=== PATIENT | male | born 1945 | race Caucasian/White ===

== ENCOUNTER 2016-10-18 20:44 | Observation (INO) | payer MEDICARE ==
[2016-10-18] MEDS ORDERED: Diltiazem IV* 5 MG/ML 5 ML VIAL (for loading dose/IV Push) (25 MG) IV SLOW PU ONE (21:23)
[2016-10-18 21:36] LABS: Hematocrit 44 % (42-52); Mean Corpuscular HGB Conc 34 g/dl (31-36); Mean Corpuscular Hemoglobin 29 pg (27-31); Mean Corpuscular Volume 84 fL (80-94); Mean Platelet Volume 9 um3 (7.4-10.4); Red Blood Count 5.24 10^6/ul (4.0-5.4); Red Cell Distribution Width 14 % (10.5-15); White Blood Count 8.1 10^3/ul (3.5-10.8)
[2016-10-18 21:47] LABS: Albumin 4.5 g/dL (3.2-5.2); BUN/Creatinine Ratio 11.6 (8-20); Calcium 9.8 mg/dL (8.6-10.3); EGFR African American 50.7 (>60); EGFR Non-African American 39.4 (>60); Globulin 2.6 g/dL (2-4); Magnesium 2.2 mg/dL (1.9-2.7); Potassium 3.7 mmol/L (3.5-5.0); Total Bilirubin 0.4 mg/dL (0.2-1.0); Total Protein 7.1 g/dL (6.4-8.9)
[2016-10-18] MEDS: Diltiazem DRIP* 100 MG/100 ML ADDV.BAG IVPB ONE ×2 (22:07→22:24)
[2016-10-18] MEDS ORDERED: Diltiazem IV VIAL* 125 MG in D5W 100 ML BAG* 100 ML IV ONE (22:21)
[2016-10-18 22:24] LABS: TSH (Thyroid Stimulating Horm) 7.18 mcIU/mL (0.34-5.60)
[2016-10-18] MEDS ORDERED: Ondansetron INJ* 2 MG/ML VIAL IV PRN (22:32)
[2016-10-18] MEDS ORDERED: Acetaminophen TAB* 325 MG PO PRN (22:32)
[2016-10-18] MEDS ORDERED: clonazePAM TAB(*) 0.5 MG PO PRN (22:36)
[2016-10-18] MEDS ORDERED: Potassium Chlor TAB* 20 MEQ TAB.ER PO ONE (22:46)
[2016-10-18 23:20] LABS: T4 7.04 mcg/mL (6.09-12.23)
--- NOTE | 2016-10-18 23:22 | ED ---
Kei Schreiber Rebecca, scribed for Francisco Javier Ley on 10/18/16 at 2105 . Palpitations / Dysrhythmia - HPI Summary HPI Summary: Pt is a 71 y/o M who presents to ED c/o palpitations characterized as irregular. Pt reports 2 episodes of sx, once 2 or 3 days ago while laying in bed and again tonight, started at 1999. Sx aggravated and alleviated by nothing. Denies any CP or SOB. No prior similar episodes. In February, the pt donated a kidney. SHx former smoker - quit 40 years ago. NO PMHx A Fib. - History of Current Complaint Chief Complaint: EDDysrhythmPalp Time Seen by Provider: 10/18/16 20:59 Hx Obtained From: Patient Onset/Duration: Lasting Hours - Started at, Still Present Character: Irregular Aggravating: Nothing Alleviating: Nothing Associated Signs & Symptoms: Negative - Allergy/Home Medications Allergies/Adverse Reactions: Allergies Allergy/AdvReac Type Severity Reaction Status Date / Time Iohexol Allergy See Comment Verified 10/18/16 20:47 NSAIDs Allergy See Comment Verified 10/18/16 20:48 PMH/Surg Hx/FS Hx/Imm Hx Endocrine/Hematology History: Denies: Hx Diabetes, Hx Anemia Cardiovascular History: Denies: Hx Hypertension, Hx Pacemaker/ICD GI History: Denies: Hx Jaundice History: Denies: Hx Renal Disease Sensory History: Reports: Hx Contacts or Glasses - GLASSES Denies: Hx Hearing Aid Opthamlomology History: Reports: Hx Contacts or Glasses - GLASSES Psychiatric History: Denies: Hx Panic Disorder - Surgical History Surgery Procedure, Year, and Place: 1978 RIGHT INGUINAL HERNIA REPAIR;. APRIL 2015 LEFT INGUINAL HERNIA REPAIR;. 1995 VASECTOMY, OFFICE. 2004 TURP, [facility] [place]. NEPRHECTOMY 02/28/16 Hx Anesthesia Reactions: Yes Infectious Disease History: Denies: Traveled Outside the [place] in Last 30 Days - Family History Known Family History: Positive: Other - No FHx clotting disorders - Social History Alcohol Use: Occasionally Alcohol Amount: 1 GLASS OF WINE OR BEER WITH A MEAL Substance Use Type: Reports: None Substance Use Comment - Amount & Last Used: OCCASIONALLY, LAST TIME A FEW MONTH AGO Smoking Status (MU): Former Smoker Amount Used/How Often: 1 PPD Review of Systems Positive: Palpitations - Irregular. Negative: Chest Pain Negative: Shortness Of Breath All Other Systems Reviewed And Are Negative: Yes Physical Exam - Summary Physical Exam Summary: Appearance: Well appearing, no pain distress Skin: warm, dry, reflects adequate perfusion Head/face: normal Eyes: EOMI, NAIMA ENT: normal Neck: supple, nontender Respiratory: CTA, breath sounds present Cardiovascular: irregularly regular rhythm and tachycardic, pulses symmetrical Abdomen: nontender, soft Bowel: present Musculoskeletal: normal, strength/ROM intact Neuro: normal, sensory motor intact, A&Ox3 Triage Information Reviewed: Yes Vital Signs On Initial Exam: Initial Vitals Temp Pulse Resp BP Pulse Ox 97.6 F 75 14 150/124 96 10/18/16 20:49 10/18/16 20:49 10/18/16 20:49 10/18/16 20:49 10/18/16 20:49 Vital Signs Reviewed: Yes Diagnostics - Vital Signs Vital Signs Temp Pulse Resp BP Pulse Ox 10/18/16 20:49 97.6 F 75 14 150/124 96 - Laboratory Lab Results: Lab Results 10/18/16 10/18/16 10/18/16 Range/Units 21:20 21:20 21:20 WBC 8.1 (3.5-10.8) 10^3/ul RBC 5.24 (4.0-5.4) 10^6/ul Hgb 15.0 (14.0-18.0) g/dl Hct 44 (42-52) % MCV 84 (80-94) fL MCH 29 (27-31) pg MCHC 34 (31-36) g/dl RDW 14 (10.5-15) % Plt Count 210 (150-450) 10^3/ul MPV 9 (7.4-10.4) um3 Neut % (Auto) 56.3 (38-83) % Lymph % (Auto) 31.0 (25-47) % Anderson % (Auto) 9.7 H (1-9) % Eos % (Auto) 2.3 (0-6) % Baso % (Auto) 0.7 (0-2) % Absolute Neuts (auto) 4.6 (1.5-7.7) 10^3/ul Absolute Lymphs (auto) 2.5 (1.0-4.8) 10^3/ul Absolute Monos (auto) 0.8 (0-0.8) 10^3/ul Absolute Eos (auto) 0.2 (0-0.6) 10^3/ul Absolute Basos (auto) 0.1 (0-0.2) 10^3/ul Absolute Nucleated RBC 0 10^3/ul Nucleated RBC % 0 INR (Anticoag Therapy) 0.86 L (0.89-1.11) APTT 32.3 (26.0-36.3) seconds D-Dimer, Quantitative < 200 (Less Than 230) ng/mL Sodium 139 (133-145) mmol/L Potassium 3.7 (3.5-5.0) mmol/L Chloride 106 (101-111) mmol/L Carbon Dioxide 26 (22-32) mmol/L Anion Gap 7 (2-11) mmol/L BUN 20 (6-24) mg/dL Creatinine 1.72 H (0.67-1.17) mg/dL Est GFR ( Amer) 50.7 (>60) Est GFR (Non-Af Amer) 39.4 (>60) BUN/Creatinine Ratio 11.6 (8-20) Glucose 146 H (70-100) mg/dL Calcium 9.8 (8.6-10.3) mg/dL Magnesium 2.2 (1.9-2.7) mg/dL Total Bilirubin 0.40 (0.2-1.0) mg/dL AST 24 (13-39) U/L ALT 25 (7-52) U/L Alkaline Phosphatase 36 (34-104) U/L Troponin I 0.00 (<0.04) ng/mL B-Natriuretic Peptide ( - 100) pg/mL Total Protein 7.1 (6.4-8.9) g/dL Albumin 4.5 (3.2-5.2) g/dL Globulin 2.6 (2-4) g/dL Albumin/Globulin Ratio 1.7 (1-3) TSH 7.18 H (0.34-5.60) mcIU/mL Free T4 Pending Thyroxine (T4) 7.04 (6.09-12.23) mcg/mL Free T3 Pending Total T3 Pending 10/18/16 Range/Units 21:20 WBC (3.5-10.8) 10^3/ul RBC (4.0-5.4) 10^6/ul Hgb (14.0-18.0) g/dl Hct (42-52) % MCV (80-94) fL MCH (27-31) pg MCHC (31-36) g/dl RDW (10.5-15) % Plt Count (150-450) 10^3/ul MPV (7.4-10.4) um3 Neut % (Auto) (38-83) % Lymph % (Auto) (25-47) % Anderson % (Auto) (1-9) % Eos % (Auto) (0-6) % Baso % (Auto) (0-2) % Absolute Neuts (auto) (1.5-7.7) 10^3/ul Absolute Lymphs (auto) (1.0-4.8) 10^3/ul Absolute Monos (auto) (0-0.8) 10^3/ul Absolute Eos (auto) (0-0.6) 10^3/ul Absolute Basos (auto) (0-0.2) 10^3/ul Absolute Nucleated RBC 10^3/ul Nucleated RBC % INR (Anticoag Therapy) (0.89-1.11) APTT (26.0-36.3) seconds D-Dimer, Quantitative (Less Than 230) ng/mL Sodium (133-145) mmol/L Potassium (3.5-5.0) mmol/L Chloride (101-111) mmol/L Carbon Dioxide (22-32) mmol/L Anion Gap (2-11) mmol/L BUN (6-24) mg/dL Creatinine (0.67-1.17) mg/dL Est GFR ( Amer) (>60) Est GFR (Non-Af Amer) (>60) BUN/Creatinine Ratio (8-20) Glucose (70-100) mg/dL Calcium (8.6-10.3) mg/dL Magnesium (1.9-2.7) mg/dL Total Bilirubin (0.2-1.0) mg/dL AST (13-39) U/L ALT (7-52) U/L Alkaline Phosphatase (34-104) U/L Troponin I (<0.04) ng/mL B-Natriuretic Peptide 59 ( - 100) pg/mL Total Protein (6.4-8.9) g/dL Albumin (3.2-5.2) g/dL Globulin (2-4) g/dL Albumin/Globulin Ratio (1-3) TSH (0.34-5.60) mcIU/mL Free T4 Thyroxine (T4) (6.09-12.23) mcg/mL Free T3 Total T3 Result Diagrams: 10/18/16 21:20 10/18/16 21:20 Lab Statement: Any lab studies that have been ordered have been reviewed, and results considered in the medical decision making process. - Radiology CXR Xray Interpretation: No Acute Changes Radiology Interpretation Completed By: ED Physician - EKG 2051 Cardiac Rate: Tachycardia - 141 bpm EKG Rhythm: Atrial Fibrillation - A Fib with rapid ventricular rate EKG Interpretation: A Fib with rapid ventricular rate Course/Dx - Course Assessment/Plan: Pt is a 71 y/o M who presents to ED c/o palpitations characterized as irregular. Pt reports 2 episodes of sx, once 2 or 3 days ago while laying in bed and again tonight, started at 1999. Sx aggravated and alleviated by nothing. Denies any CP or SOB. No prior similar episodes. In February, the pt donated a kidney. SHx former smoker - quit 40 years ago. NO PMHx A Fib. EKG reveals A Fib with rapid ventricular rate. CXR is negative, as reviewed by ED physician. Troponin of 0.00. Discussed care of pt with Dr. Staples, hospitalist, who accepts pt for admission. He will be admitted with Dx of A Fib with RVR. He understands and agrees. Elevated BP noted and advised to f/u with PCP. - Diagnoses Provider Diagnoses: Atrial fibrillation with RVR - Physician Notifications Discussed Care Of Patient With: Ramos Staples Time Discussed With Above Provider: 22:00 Instructed by Provider To: Other - Accepts pt for admission. - Critical Care Time Critical Care Time: 30-74 min - pt given iv cardiazem Discharge - Discharge Plan Condition: Stable Disposition: ADMITTED TO [facility] documentation as recorded by the Kei joe Rebecca accurately reflects the service I personally performed and the decisions made by , Francisco Javier Ley.
[2016-10-18 23:28] LABS: Free T3 3.6 pg/mL (2.5-3.9); Free T4 0.65 ng/dL (0.61-1.12)
[2016-10-18 23:32] LABS: Total T3 1.16 ng/mL (0.87-1.78)
[2016-10-18] MEDS: Diltiazem DRIP* 100 MG/100 ML ADDV.BAG IVPB SCH (23:41)
[2016-10-19] MEDS: Apixaban* 5 MG TAB PO SCH ×2 (00:09→08:29)
[2016-10-19 04:19] LABS: Hematocrit 43 % (42-52); Mean Corpuscular HGB Conc 35 g/dl (31-36); Mean Corpuscular Hemoglobin 29 pg (27-31); Mean Corpuscular Volume 83 fL (80-94); Mean Platelet Volume 9 um3 (7.4-10.4); Red Blood Count 5.22 10^6/ul (4.0-5.4); Red Cell Distribution Width 14 % (10.5-15); White Blood Count 8.4 10^3/ul (3.5-10.8)
[2016-10-19 04:34] LABS: BUN/Creatinine Ratio 11.3 (8-20); Calcium 9.4 mg/dL (8.6-10.3); EGFR African American 52.1 (>60); EGFR Non-African American 40.5 (>60)
[2016-10-19] MEDS: Diltiazem DRIP* 100 MG/100 ML ADDV.BAG IVPB SCH (05:04)
--- NOTE | 2016-10-19 05:11 | HP ---
CC: Dr. Reid; Dr. Macias; Dr. Vogt * HISTORY AND PHYSICAL: DATE OF ADMISSION: 10/18/16 PRIMARY CARE PROVIDER: Dr. Reid. ATTENDING PHYSICIAN WHILE IN THE HOSPITAL: Ramos Staples MD * (report dictated by Ritchie Wright NP). CONSULTING CARDIOLOGISTS: 1. Dr. Macias. 2. Dr. Vogt. CHIEF COMPLAINT: 1. Palpitations. 2. Irregular heart beat. HISTORY OF PRESENT ILLNESS: Mr. Pro is a 71-year-old male patient with a history of BPH and occasional insomnia. He comes into the ER today stating that on , he noticed that his heart rate was elevated. It was irregular. He could feel palpitations in his chest. He thinks that they went away. He was okay on Wednesday and Wednesday and then about 2 hours prior to coming into the ER, he had an episode again of AFib and irregular heart beat. His heart rate was in the 110s to 120s normally. His resting heart rate was around 60. He could feel his heart beat in his ears. It was very sporadic. He was concerned because it was happening again and he came into the hospital. He does have a recent travel. He was driving to [place]. He denies any calf or leg pain. He says he has not had any chest pain or shortness of breath. He recently in February had a nephrectomy to donate to his brother. He does not take any medications. The only things he takes is Klonopin occasionally for insomnia and he says he did have some alcohol this weekend when he was traveling. He does drink coffee pretty routinely. He came in, he was relatively found to be in AFib with RVR. He was given diltiazem bolus, the drip was then started. Because of the AFib with RVR, we were asked to evaluate for admission. PAST MEDICAL HISTORY: Significant for: 1. BPH. 2. Insomnia. PAST SURGICAL HISTORY: 1. He has had a TURP. 2. Nephrectomy. 3. Hernia repair x2. MEDICATIONS: Include Klonopin 0.5 mg as needed at bedtime. ALLERGIES: His allergies to medications include NSAIDs and IV CONTRAST. FAMILY HISTORY: Mother had CHF. She in her 90s. Father had history of IN. SOCIAL HISTORY: He does not smoke. He occasionally drinks alcohol. He does drink coffee on a daily basis. Surrogate decision maker is his . REVIEW OF SYSTEMS: There is no documented fever. He denied having any significant weight change. There was no double vision, no ear discharge, no rhinorrhea, no sore throat. No thyroid enlargement. Denies any chest pain. There is no orthopnea, no nocturnal dyspnea. There is no abdominal pain. No nausea, no vomiting, no dysuria, no frequency, no seizure, no loss of consciousness, no pruritus, and no skin ulcerations. Review of 14 systems was completed, all others negative. PHYSICAL EXAMINATION GENERAL: At this time, Mr. Pro is a 71-year-old male patient. He appears to be well nourished, well developed. He does not appear to be in any acute distress. VITAL SIGNS: Blood pressure 113/80, pulse 99, respirations 18, O2 sat 94%, temperature 97.6. HEENT: Head is atraumatic and normocephalic. Eyes: EOMs are intact. Sclerae are anicteric and not pale. Throat: Oral mucosa appears to be moist. No oropharyngeal erythema. NECK: Supple. LUNGS: Clear to auscultation bilaterally. No wheezes, rales, or rhonchi. HEART: Sounds S1, S2. Irregularly irregular rate. No murmurs, rubs, or gallops. ABDOMEN: Soft. It was flat, nontender. Bowel sounds present. EXTREMITIES: Pulses were 2+ throughout. He is able to move all 4 extremities with 5/5 strength. NEUROLOGIC: He is awake, he is alert, he is oriented x3. Tongue is midline. Leg Breaker were equal. No gross focal deficits. SKIN: Intact. DIAGNOSTIC STUDIES/LAB DATA: The labs reveal a WBC of 8.1, RBC of 5.24, hemoglobin of 15.0, hematocrit of 44, platelet count of 210. INR of 0.86, PTT of 32.3. D- dimer less than 200. Sodium 139, potassium 0.7, chloride of 106, bicarb 26, BUN 20, creatinine 1.79, glucose 146, calcium 9.8. Total mag 2.2. Total bili 0.4, AST 24, ALT 24, alk phos 36. Troponin 0. BNP 59. TSH was 7.18. He had a D-dimer, which was less than 200. He did have a chest x-ray obtained today, which were not reviewed. I did not appreciate any acute infiltrates or effusions. EKG showed atrial fibrillation rate of 141. No ST elevations or T-wave inversions were noted. Old medical records were reviewed. ASSESSMENT AND PLAN: Mr. Pro is a 71-year-old male patient coming in to the ER today with complaints of palpitations. He did feel them on . Did not feel them on Wednesday or Wednesday and they came back about 2 hours prior to presentation in the ER. Evaluation found to be in atrial fibrillation with rapid ventricular response. He will be admitted under observation status for: 1. Atrial fibrillation with rapid ventricular response. Plan at this point is to go ahead and start him on apixaban. He does not need to be renally dosed because he is not over the age of 80, he is not less than 60 kg, creatinine is 1.7, but does not need to be adjusted unless he has more criteria for the Eliquis. I will go ahead and rate control him with a diltiazem drip. His potassium is 3.7, so I am going to give him a little bit of potassium. His mag was good. I did touch base with Dr. Macias. The plan will be for a ANNA-guided cardioversion tomorrow. I will cycle his troponin. We will place him on telemetry and we will continue to follow closely. 2. History of benign prostatic hypertrophy, follow up with primary. 3. History of insomnia. P.r.n. Klonopin is available, which he takes at home. 4. DVT prophylaxis: He is on apixaban. 5. Code status: Full code. 6 Fluids and nutrition: He can have a heart- healthy diet and n.p.o. after midnight. TIME SPENT: Time spent on the admission 60 minutes; greater than half the time spent [id number] with the patient, obtaining my history and physical, the other half time was spent going over the plan of care with the patient and implementing the plan of care. I did discuss the plan of care with my attending, Dr. Staples. RITCHIE WRIGHT, DENNIS [id number]/[facility] #: [id number] [facility]ALTH SYSTEMPaty
--- NOTE | 2016-10-19 07:27 | RAD ---
INDICATION: Palpitations. COMPARISON: Comparison is made with a prior outside chest x-ray study from May 01, 2015. TECHNIQUE: A portable view of the chest was obtained. FINDINGS: Cardiac and mediastinal contours appear to be within normal limits. The lungs are clear. No pleural effusion is seen. IMPRESSION: NO EVIDENCE FOR ACUTE DISEASE.
[2016-10-19] MEDS ORDERED: Levothyroxine TAB* 25 MCG TAB PO SCH (08:30)
--- NOTE | 2016-10-19 08:34 | CONSULT ---
Subjective Date of Service: 10/19/16 Interval History: Admission Date: 10/18/16 Consult date 10/19/2016: Provider: Hospitalist service PMD: Dr. Reid CC: Palpitation Reason for consult: Atrial fibrillation HISTORY OF PRESENT ILLNESS: Mr. Pro is a 71-year-old male patient with a history of BPH and donated kidney this February for his brother with subsequent CKD who came to the ER yesterday with palpitations and irregular heart rate intermittent since last . No chest pain, dyspnea, lightheadedness palpitations or syncope. He was found with rapid atrial fibrillation. He subsequently converted to normal sinus rhythm on a diltiazem infusion. He is now asymptomatic. He denies any hx of CHF, diabetes, cva/tia or vascular disease. He was told by kidney specialist at [facility] his BP may go up by 8 or 10 mmHg post transplant and he may need to take lifelong BP medication. His BP in left arm has been good. BP in right arm has been 135/85-90. BP inpatient has been elevated but under stressful circumstances. Has one alcohol drink almost every day. We discussed the strong association of regular alcohol use with atrial fibrillation. He was told he had a fatty liver at [facility] and shouldn't drink alcohol as well. We discussed for a long time different aspects of atrial fibrillation including rate control, rhythm control, risks factors, the role of anticoagulation. For now, we will start diltiazem 120 mg po daily to help rate control future episodes and make less symptomatic. Since symptoms have been > 48 hours, I would recommend anticoagulation for the time being, duration to be determined. We discussed various anticoagulants and risks and benefits of each. Given kidney dysfunction will use eliquis 5 mg PO BID. He understands risks of anticoagulation including but not limited to life threatening hemorrhage from trauma, GI hemorrhage or intracranial hemorrhage. He understands there is no FDA approved reversal agent for eliquis. PAST MEDICAL HISTORY: Significant for: 1. BPH. 2. Insomnia. 3. CKD PAST SURGICAL HISTORY: 1. He has had a TURP. 2. Nephrectomy. 3. Hernia repair x2. MEDICATIONS: Include Klonopin 0.5 mg as needed at bedtime. ALLERGIES: His allergies to medications include NSAIDs and IV CONTRAST. FAMILY HISTORY: Mother had CHF. She in her 90s. Father had history of IN. SOCIAL HISTORY: He does not smoke. He occasionally drinks alcohol. He does drink coffee on a daily basis. Surrogate decision maker is his . Medications Active Medications: Acetaminophen (Tylenol Tab*) 650 mg PO Q4H PRN PRN Reason: FEVER/PAIN Apixaban (Eliquis*) 5 mg PO BID [facility] Last Admin: 10/19/16 08:29 Dose: 5 mg Clonazepam (Klonopin Tab(*)) 0.5 mg PO BEDTIME PRN PRN Reason: OCCASIONAL INSOMNIA Diltiazem HCl (Cardizem Iv Advan*) 100 mg in 100 mls @ 5 mls/hr IVPB ED ONCE ONE Stop: 10/19/16 17:59 Last Admin: 10/18/16 22:24 Dose: 10 mls/hr Diltiazem HCl 125 mg/ Dextrose 125 mls @ 5 mls/hr IV ED ONCE ONE PRN Reason: 5 MG/HR Stop: 10/19/16 23:20 Last Admin: 10/19/16 00:17 Dose: Not Given Levothyroxine Sodium (Synthroid Tab*) 25 mcg PO DAILY@0600 [facility] Ondansetron HCl (Zofran Inj*) 4 mg IV Q6H PRN PRN Reason: NAUSEA Home Medications: clonazePAM TAB(*) [KlonoPIN TAB(*)] 0.5 mg PO BEDTIME PRN 01/03/15 [History Confirmed 10/18/16] Review of Systems - Measurements Intake and Output: Intake and Output Last 24 Hours 10/17/16 10/18/16 10/19/16 10/20/16 06:59 06:59 06:59 06:59 Intake Total 136 Output Total 350 Balance -214 Weight 185 lb 11.2 oz Intake: IV Fluids 123 IVPB 13 Oral 0 Output: Urine 350 Other: # Bowel Movements 0 - Review of Systems Constitutional Symptoms: Negative: Weight Gain, Weight Loss, Weakness, Fatigue, Fever, Night Sweats Dermatology: Negative: Rash, Skin Lesions HEENT: Negative: Change in Hearing, Vertigo, Tinnitus Eyes: Negative: Change in Vision, Double Vision, Eye Pain Thyroid: Positive: Palpitations, Primary Hypothyroidism Negative: Cold Intolerance, Heat Intolerance, Sweatiness, Tremor, Primary Hyperthyroidism, Weight Loss, Weight Gain Pulmonary: Negative: Cough, Sputum, Hemoptysis, Wheezing, Respiratory Distress, Shortness of Breath, COPD, Asthma Cardiology: Positive: Palpitations Negative: Chest Pain, Shortness of Breath, Swelling of Ankles, Peripheral Vascular Dis, Edema, Faintness, Syncope, Claudication, Paroxysmal Nocturnal Dyspnea, Orthopnea Gastroenterology: Negative: Abdominal Pain, Nausea, Vomiting, Anorexia, Indigestion, Difficulty Swallowing, Heartburn, Constipation, Diarrhea, Blood in Stools, Change in Bowel Habits, Haematemesis, Melena Genital - Urinary: Negative: Dysuria, Hematuria Musculoskeletal: Negative: Joint Pain, Joint Stiffness, Arthritis, Osteoporosis Endocrinology: Negative: Thyroid Problems, Family Hx Endocrine Disorders, Diabetes, Hyperglycemia, Hypoglycemia, Calluses, Polydipsia, Polyuria Hematologic/Lymphatic: Negative: Anemia, Easy Brusing, Hx Leukemia, Hx Lymphoma, Use of Anticoagulant, Use of Antiplatelet Drugs Neurology: Negative: Headaches, Migraines, Change in Vision, Diplopia, Dizziness, Change in Balancing, Change in Coordination, Change in Memory, Change in Speech , Change in Sphincter Function, Change in Walking, Numbness\Paresthesiae, Unexplained Weakness, Hx of Stroke\TIA, Hx Seizures Psychiatry: Positive: Anxiety Negative: Depression, Depressed Mood, Weight Change, Guilt Feelings, Tearfulness, Unusual Fatigue Allergic/Immunologic: Negative: Hx Anaphylaxis, Hx Angioedema, Hx Seasonal Allergies, Hx HIV, Immunocompromise Review of Systems Statement: All other review of systems negative, unless stated above. Objective Vital Signs: Temp Pulse Resp BP Pulse Ox 97.8 F 110 20 136/86 100 10/19/16 03:45 10/18/16 22:48 10/19/16 03:45 10/19/16 05:13 10/18/16 22:48 Appearance: nad, pleasant Ears/Nose/Mouth/Throat: Clear Oropharnyx, Mucous Membranes Moist Neck: NL Appearance and Movements; NL JVP Respiratory: Symmetrical Chest Expansion and Respiratory Effort, Clear to Auscultation Cardiovascular: NL Sounds; No Murmurs; No JVD, RRR, No Edema Abdominal: NL Sounds; No Tenderness; No Distention Extremities: No Edema Skin: No Rash or Ulcers Neurological: Alert and Oriented x 3 Laboratory Results: 10/19/16 04:10 10/19/16 04:10 INR (Anticoag Therapy) 0.97 (0.89-1.11) 10/19/16 04:10 APTT 32.3 seconds (26.0-36.3) 10/18/16 21:20 Total Bilirubin 0.40 mg/dL (0.2-1.0) 10/18/16 21:20 AST 24 U/L (13-39) 10/18/16 21:20 ALT 25 U/L (7-52) 10/18/16 21:20 Alkaline Phosphatase 36 U/L (34-104) 10/18/16 21:20 B-Natriuretic Peptide 59 pg/mL (-100) 10/18/16 21:20 Total Protein 7.1 g/dL (6.4-8.9) 10/18/16 21:20 Albumin 4.5 g/dL (3.2-5.2) 10/18/16 21:20 Globulin 2.6 g/dL (2-4) 10/18/16 21:20 Albumin/Globulin Ratio 1.7 (1-3) 10/18/16 21:20 TSH 7.18 mcIU/mL (0.34-5.60) H 10/18/16 21:20 10/19/16 10/19/16 00:37 04:10 Troponin I 0.01 0.02 Diagnostic Imagin04/2015: TTE normal LV size and function LVEF 55-60%, no significant valvular abnormalities noted Normal exercise stress echocardiogram, canseco treadmill score 8 EKG Data: EKG 10/18/2016: Rapid afib 140 bpm, no ischemic changes EkG 10/19/2016: Sinus bradycardia 53 bpm, otherwise normal ekg Assessment/Plan Mr. Pro is a 71-year-old male patient with a history of BPH and donated kidney this February for his brother with subsequent CKD, ? hypertension presents with symptomatic rapid atrial fibrillation at least 48 hours spontaneous cardioversion while on diltiazem gtt now asymptomatic, chads2-vasc score 1-2. - Stop diltiazem gtt, start 120 mg PO daily ordered - Start eliquis 5 mg PO BID - Will arrange follow [facility] [employer] follow up Thank you for allowing me to participate in the cardiovascular care of this patient. Please do not hesitate to contact me with questions or concerns.
[2016-10-19 08:39] VITALS: BP 132/75
--- NOTE | 2016-10-19 08:51 | DCNOTE ---
Subjective Date of Service: 10/19/16 Interval History: No c/o. Patient only noticed he was having a rapid heart rate at home when he put ear plugs in to help go to sleep. Objective Active Medications: Acetaminophen (Tylenol Tab*) 650 mg PO Q4H PRN PRN Reason: FEVER/PAIN Apixaban (Eliquis*) 5 mg PO BID [facility] Last Admin: 10/19/16 08:29 Dose: 5 mg Clonazepam (Klonopin Tab(*)) 0.5 mg PO BEDTIME PRN PRN Reason: OCCASIONAL INSOMNIA Diltiazem HCl (Cardizem Cd Cap*) 120 mg PO DAILY [facility] Diltiazem HCl (Cardizem Cd Cap*) 120 mg PO DAILY [facility] Levothyroxine Sodium (Synthroid Tab*) 25 mcg PO DAILY@0600 [facility] Last Admin: 10/19/16 08:35 Dose: 25 mcg Ondansetron HCl (Zofran Inj*) 4 mg IV Q6H PRN PRN Reason: NAUSEA Vital Signs 10/18/16 10/18/16 10/18/16 22:30 22:48 23:29 Temperature 97.6 F Pulse Rate 110 110 Respiratory 18 16 Rate Blood Pressure 129/92 142/77 157/125 (mmHg) O2 Sat by Pulse 94 100 Oximetry 10/18/16 10/18/16 10/18/16 23:30 23:43 23:50 Temperature Pulse Rate Respiratory Rate Blood Pressure 142/77 136/92 120/79 (mmHg) O2 Sat by Pulse Oximetry 10/19/16 10/19/16 10/19/16 00:13 00:17 00:43 Temperature 97.6 F Pulse Rate Respiratory Rate Blood Pressure 132/69 122/78 (mmHg) O2 Sat by Pulse Oximetry 10/19/16 10/19/16 10/19/16 01:13 01:40 02:13 Temperature Pulse Rate Respiratory Rate Blood Pressure 130/71 153/82 115/80 (mmHg) O2 Sat by Pulse Oximetry 10/19/16 10/19/16 10/19/16 03:13 03:45 04:13 Temperature 97.8 F Pulse Rate Respiratory 20 Rate Blood Pressure 115/82 125/84 (mmHg) O2 Sat by Pulse Oximetry 10/19/16 10/19/16 10/19/16 05:06 05:13 05:18 Temperature Pulse Rate Respiratory Rate Blood Pressure 124/74 136/86 130/83 (mmHg) O2 Sat by Pulse Oximetry 10/19/16 10/19/16 10/19/16 05:23 05:26 05:38 Temperature Pulse Rate Respiratory Rate Blood Pressure 123/82 131/84 119/87 (mmHg) O2 Sat by Pulse Oximetry 10/19/16 10/19/16 10/19/16 05:53 06:09 06:23 Temperature Pulse Rate Respiratory Rate Blood Pressure 123/78 127/75 126/83 (mmHg) O2 Sat by Pulse Oximetry 10/19/16 10/19/16 10/19/16 06:26 06:53 07:23 Temperature Pulse Rate Respiratory Rate Blood Pressure 123/77 135/85 122/73 (mmHg) O2 Sat by Pulse Oximetry 10/19/16 10/19/16 10/19/16 07:31 07:53 08:23 Temperature 98.1 F Pulse Rate 55 Respiratory 16 Rate Blood Pressure 107/73 132/75 (mmHg) O2 Sat by Pulse 97 Oximetry Oxygen Devices in Use Now: None Appearance: Alert, supine in bed. In good spirits. Looks comfortable. Ears/Nose/Mouth/Throat: Clear Oropharnyx, Mucous Membranes Moist Neck: NL Appearance and Movements; NL JVP, No Thyroid Enlargement, Masses Respiratory: Symmetrical Chest Expansion and Respiratory Effort, Clear to Auscultation, Clear to Percussion Cardiovascular: NL Sounds; No Murmurs; No JVD, RRR, No Edema, - Extremities: No Edema, No Clubbing, Cyanosis, - Skin: No Rash or Ulcers, No Nodules or Sclerosis, - Neurological: Alert and Oriented x 3, NL Sensation Result Diagrams: 10/19/16 04:10 10/19/16 04:10 Additional Lab and Data: Lab Results 10/18/16 10/18/16 10/18/16 Range/Units 21:20 21:20 21:20 WBC 8.1 (3.5-10.8) 10^3/ul RBC 5.24 (4.0-5.4) 10^6/ul Hgb 15.0 (14.0-18.0) g/dl Hct 44 (42-52) % MCV 84 (80-94) fL MCH 29 (27-31) pg MCHC 34 (31-36) g/dl RDW 14 (10.5-15) % Plt Count 210 (150-450) 10^3/ul MPV 9 (7.4-10.4) um3 Neut % (Auto) 56.3 (38-83) % Lymph % (Auto) 31.0 (25-47) % [place] % (Auto) 9.7 H (1-9) % Eos % (Auto) 2.3 (0-6) % Baso % (Auto) 0.7 (0-2) % Absolute Neuts (auto) 4.6 (1.5-7.7) 10^3/ul Absolute Lymphs (auto) 2.5 (1.0-4.8) 10^3/ul Absolute Monos (auto) 0.8 (0-0.8) 10^3/ul Absolute Eos (auto) 0.2 (0-0.6) 10^3/ul Absolute Basos (auto) 0.1 (0-0.2) 10^3/ul Absolute Nucleated RBC 0 10^3/ul Nucleated RBC % 0 INR (Anticoag Therapy) 0.86 L (0.89-1.11) APTT 32.3 (26.0-36.3) seconds D-Dimer, Quantitative < 200 (Less Than 230) ng/mL Sodium 139 (133-145) mmol/L Potassium 3.7 (3.5-5.0) mmol/L Chloride 106 (101-111) mmol/L Carbon Dioxide 26 (22-32) mmol/L Anion Gap 7 (2-11) mmol/L BUN 20 (6-24) mg/dL Creatinine 1.72 H (0.67-1.17) mg/dL Est GFR ( Amer) 50.7 (>60) Est GFR (Non-Af Amer) 39.4 (>60) BUN/Creatinine Ratio 11.6 (8-20) Glucose 146 H (70-100) mg/dL Calcium 9.8 (8.6-10.3) mg/dL Magnesium 2.2 (1.9-2.7) mg/dL Total Bilirubin 0.40 (0.2-1.0) mg/dL AST 24 (13-39) U/L ALT 25 (7-52) U/L Alkaline Phosphatase 36 (34-104) U/L Troponin I 0.00 (<0.04) ng/mL B-Natriuretic Peptide ( - 100) pg/mL Total Protein 7.1 (6.4-8.9) g/dL Albumin 4.5 (3.2-5.2) g/dL Globulin 2.6 (2-4) g/dL Albumin/Globulin Ratio 1.7 (1-3) TSH 7.18 H (0.34-5.60) mcIU/mL Free T4 Pending Thyroxine (T4) 7.04 (6.09-12.23) mcg/mL Free T3 Pending Total T3 Pending 10/18/16 Range/Units 21:20 WBC (3.5-10.8) 10^3/ul RBC (4.0-5.4) 10^6/ul Hgb (14.0-18.0) g/dl Hct (42-52) % MCV (80-94) fL MCH (27-31) pg MCHC (31-36) g/dl RDW (10.5-15) % Plt Count (150-450) 10^3/ul MPV (7.4-10.4) um3 Neut % (Auto) (38-83) % Lymph % (Auto) (25-47) % [place] % (Auto) (1-9) % Eos % (Auto) (0-6) % Baso % (Auto) (0-2) % Absolute Neuts (auto) (1.5-7.7) 10^3/ul Absolute Lymphs (auto) (1.0-4.8) 10^3/ul Absolute Monos (auto) (0-0.8) 10^3/ul Absolute Eos (auto) (0-0.6) 10^3/ul Absolute Basos (auto) (0-0.2) 10^3/ul Absolute Nucleated RBC 10^3/ul Nucleated RBC % INR (Anticoag Therapy) (0.89-1.11) APTT (26.0-36.3) seconds D-Dimer, Quantitative (Less Than 230) ng/mL Sodium (133-145) mmol/L Potassium (3.5-5.0) mmol/L Chloride (101-111) mmol/L Carbon Dioxide (22-32) mmol/L Anion Gap (2-11) mmol/L BUN (6-24) mg/dL Creatinine (0.67-1.17) mg/dL Est GFR ( Amer) (>60) Est GFR (Non-Af Amer) (>60) BUN/Creatinine Ratio (8-20) Glucose (70-100) mg/dL Calcium (8.6-10.3) mg/dL Magnesium (1.9-2.7) mg/dL Total Bilirubin (0.2-1.0) mg/dL AST (13-39) U/L ALT (7-52) U/L Alkaline Phosphatase (34-104) U/L Troponin I (<0.04) ng/mL B-Natriuretic Peptide 59 ( - 100) pg/mL Total Protein (6.4-8.9) g/dL Albumin (3.2-5.2) g/dL Globulin (2-4) g/dL Albumin/Globulin Ratio (1-3) TSH (0.34-5.60) mcIU/mL Free T4 Thyroxine (T4) (6.09-12.23) mcg/mL Free T3 Total T3 Assess/Plan/Problems-Billing Assessment: - Patient Problems (1) Atrial fibrillation Current Visit: Yes Status: Acute Code(s): I48.91 - UNSPECIFIED ATRIAL FIBRILLATION SNOMED Code(s): 71967358 Comment: Spontaneously converted to NSR this AM about 7:[address] Marine Macias. Discharge on apixaban, ditiazem. Fup Dr. Delgadillo (2) Hypothyroid Current Visit: Yes Status: Acute Code(s): E03.9 - HYPOTHYROIDISM, UNSPECIFIED SNOMED Code(s): 51332036 Comment: TSH 7.18 10/18/16. Start levothyroxine [address] Reid. (3) Thyroid nodule Current Visit: No Status: Acute Code(s): E04.1 - NONTOXIC SINGLE THYROID NODULE SNOMED Code(s): 650356362 Comment: Found incidentally during donor wup, has had bx. He is scheduled for fup US. (4) CKD (chronic kidney disease) Current Visit: Yes Status: Acute Code(s): N18.9 - CHRONIC KIDNEY DISEASE, UNSPECIFIED SNOMED Code(s): 009063392 Comment: Kidney donor, creatinine at his new baseline. Status and Disposition: Discharge now. Fup Gilberto Echevarria.
[2016-10-19] MEDS ORDERED: Diltiazem CD CAP* 120 MG PO SCH ×2 (09:00→10:00)
--- NOTE | 2016-10-19 11:17 | ECHO ---
Patient: EDMOND VELASCO [facility] Rec#: [id number] : 1945 Date: 10/19/2016 Age: 71y Height: 177.8 cm / 70.0 in Weight: 81.65 kg / 180.0 lbs Sex: M BSA: 2 Room#: 438 Admit Date#: 10/18/2016 Type: Inpatient Referring: Madi Cuenca MD Reading: Edouard Macias DO Chemical Blender: Anay Cho RDCS CC: Devante Reid MD Transthoracic Echocardiogram Indication: A-fib BP: 132/75 HR: 54 Rhythm: NSR Findings History: BPH,CKD,s/p kidney donation,recently in A-fib with conversion to NSR. Technical Comments: The study quality is fair. Completed at 1036. Left Ventricle: The left ventricular chamber size is normal. Mild concentric left ventricular hypertrophy is observed. Global left ventricular wall motion and contractility are within normal limits. There is normal left ventricular systolic function. The estimated ejection fraction is 60-65%. Abnormal left ventricular diastolic function is observed. Left Atrium: The left atrial chamber size is normal. Right Ventricle: The right ventricular chamber size and systolic function are within normal limits. Right Atrium: The right atrial cavity size is normal. Aortic Valve: The aortic valve is trileaflet. There is no evidence of aortic regurgitation. There is no evidence of aortic stenosis. Mitral Valve: The mitral valve leaflets are mildly thickened. There is a trace of mitral regurgitation. There is no evidence of mitral stenosis. Tricuspid Valve: The tricuspid valve leaflets are normal. There is a physiologic tricuspid regurgitation. Unable to estimate the right ventricular systolic pressure. There is no tricuspid stenosis. Pulmonic Valve: The pulmonic valve appears normal. There is no evidence of pulmonic regurgitation. There is no pulmonic stenosis. Pericardium: The pericardium appears normal. There is no significant pericardial effusion. Aorta: There is no dilatation of the ascending aorta. There is no dilatation of the aortic arch. There is no dilation of the aortic root. Pulmonary Artery: The main pulmonary artery is not well visualized. Venous: The inferior vena cava appears normal in size. There is a greater than 50% respiratory change in the inferior vena cava dimension. Conclusions The left ventricular chamber size is normal. Mild concentric left ventricular hypertrophy is observed. Global left ventricular wall motion and contractility are within normal limits. There is normal left ventricular systolic function. The estimated ejection fraction is 60-65%. The left atrial chamber size is normal. The right ventricular chamber size and systolic function are within normal limits. No significant valvular abnormalities noted. Measurements Name Value Normal Range RVIDd (AP) 2D 3.1 cm (0.9 - 2.6) RVDdMajor (2D) 3.3 cm (2.2 - 4.4) RA (A4C)W 3.1 cm (2.9 - 4.6) IVSd (2D) 1.2 cm (0.6 - 1) LVPWd (2D) 1.2 cm (0.6 - 1) LVIDd (2D) 3.8 cm (3.6 - 5.4) LVIDs (2D) 2.1 cm - LV FS (2D) 31 % (25 - 45) Aortic Annulus 2 cm (1.4 - 2.6) Ao root diameter (2D) 3.1 cm (2.1 - 3.5) Ascending Ao 3.4 cm (2.1 - 3.4) Aortic arch 2.5 cm (1.8 - 3.4) Descending Ao 0.6 cm - LAd ISD 4CH 5.6 cm (2.9 - 5.3) LA ISD 4CH W 3.3 cm (2.5 - 4.5) Name Value Normal Range LA ESV SP 4CH (A/L) 39 ml - LA ESV SP 2CH (A/L) 40 ml - LA ESV BP (A/L) 42 ml - LA ESV BP (A/L) index 20.79 ml/m2 - LA ESV SP 4CH (MOD) 37 ml - LA ESV SP 2CH (MOD) 38 ml - Name Value Normal Range MV E-wave Vmax 0.6 m/sec - MV deceleration time 368 msec - MV A-wave Vmax 0.8 m/sec - MV E:A ratio 0.73 ratio - LV septal e' Vmax 0.07 m/sec - LV lateral e' Vmax 0.08 m/sec - LV E:e' septal ratio 8.57 ratio - LV E:e' lateral ratio 7.5 ratio - Name Value Normal Range AV Vmax 1.6 m/sec - AV VTI 31.8 cm - AV peak gradient 9.8 mmHg - AV mean gradient 4.38 mmHg - LVOT Vmax 1.3 m/sec - LVOT VTI 22.4 cm - LVOT peak gradient 7.06 mmHg - LVOT mean gradient 2.49 mmHg - Name Value Normal Range IVC diameter 1.6 cm - Name Value Normal Range PV Vmax 0.5 m/sec - PV peak gradient 0.84 mmHg -
--- NOTE | 2016-10-19 22:25 | DS ---
CC: Dr. Devante Reid; Dr. Edouard Macias * DISCHARGE SUMMARY: DATE OF ADMISSION: DATE OF DISCHARGE: 10/19/16 HISTORY OF PRESENT ILLNESS: This 71-year-old man presented with palpitations. He was found to be in atrial fibrillation with a heart rate of over 140 on his EKG. He was admitted to the telemetry unit and placed on intravenous diltiazem infusion. He had 3 troponins levels all of which were within normal limits. About 7:50 a.m. on the day of discharge, he spontaneously converted to normal sinus rhythm. He had no symptoms at that time. I discussed the case with Dr. Macias. The patient was probably in atrial fibrillation by history for about 3 days if not longer. He will be on apixaban for at least a month possibly indefinitely depend upon further evaluation. He will be also on diltiazem 120 mg daily. His blood pressure was very slightly elevated here on the morning of discharge, it was 136/86. His TSH was noted to be 7.18 on 10/18/16. He has been started on levothyroxine 25 mcg daily. I note he has already been evaluated for his thyroid nodule with a biopsy and scheduled for a followup ultrasound in the near future. FINAL DIAGNOSES: 1. Paroxysmal atrial fibrillation. 2. Chronic kidney disease, status post kidney donation. 3. Hyperthyroidism for thyroid nodule. DISCHARGE MEDICATIONS: 1. Apixaban 5 mg b.i.d. 2. Diltiazem CD 120 mg daily. 3. Levothyroxine 25 mcg daily. 4. Clonazepam 0.5 mg h.s. p.r.n. [id number]/[facility] #: [id number] [facility]
== END 2016-10-19 11:31 | disposition home or self-care (01) ==
LOC: ED 20:44 → MEDTELE 22:28
PROVIDERS: ADMIT Hospitalist; ATTEND Internal Medicine
DX: I48.0 Paroxysmal atrial fibrillation (principal); N18.9 Chronic kidney disease, unspecified; Z94.0 Kidney transplant status; E05.20 Thyrotoxicosis with toxic multinodular goiter without thyrotoxic crisis or storm
CPT/HCPCS: 36415; 71010; 80048; 80053; 83735; 83880; 84436; 84439; 84443; 84479; 84481; 84484; 85025; 85379; 85610; 85730; 93005; 93306; 96365; 96375; 99285; A9270-GY; G0378